=== PATIENT | male | born 1995 | race African-American/Black ===

== ENCOUNTER 2019-10-31 06:34 | Day surgery (SDC) | payer OTHER ==
[2019-10-30 16:00] VITALS: BMI 38.7
[~2019-10-31 06:34] MED LIST: BUPIVACAINE HCL/PF 0.5% (5 MG/ML) 30 ML VIAL IJ ONE
[2019-10-31] MEDS ORDERED: LIDOCAINE HCL/PF 2% SDV 5ML VIAL ONE (07:16)
[2019-10-31] MEDS ORDERED: DEXAMETHASONE SOD PHOSPHATE 4 MG/1 ML VIAL ONE (07:16)
[2019-10-31] MEDS ORDERED: PROPOFOL 20 ML ONE ×2 (07:16)
[2019-10-31] MEDS ORDERED: MIDAZOLAM HCL 2 MG/2 ML SINGLE DOSE VIAL ONE ×2 (07:17)
--- NOTE | 2019-10-31 08:18 | HP ---
History & Physical Update - History History: No Change - Physical Physical: No Change - Assessment Assessment: No Change - Plan Plan: No Change
--- NOTE | 2019-10-31 08:19 | OP ---
Operative Note - Note: Operative Date: 10/31/19 Pre-Operative Diagnosis: phimosis Operation: circumcision Findings: phimosis Post-Operative Diagnosis: Same as Pre-op Surgeon: Jorge Tuttle Anesthesiologist/HIDE SPLITTER: Dafne Ochoa Anesthesia: General, Local Specimens Removed: foreskin Estimated Blood Loss (mls): 0 Operative Report Dictated: Yes
[2019-10-31] MEDS ORDERED: oxyCODONE HCL 5 MG TABLET PO PRN ×2 (08:26)
[2019-10-31] MEDS ORDERED: ONDANSETRON 4 MG/2 ML VIAL IVPUSH PRN (08:26)
[2019-10-31] MEDS ORDERED: LACTATED RINGERS SOLUTION 1,000 ML IV SCH (08:30)
[2019-10-31] MEDS ORDERED: CLINDAMYCIN 600 MG PREMIX BAG IVPB ONE (10:15)
[2019-10-31] MEDS ORDERED: BUPIVACAINE HCL/PF 0.5% (5 MG/ML) 30 ML VIAL IJ ONE (10:17)
[2019-10-31] MEDS ORDERED: KETOROLAC TROMETHAMINE 30 MG/1 ML VIAL ONE (10:25)
[2019-10-31] MEDS ORDERED: ONDANSETRON 4 MG/2 ML VIAL ONE (10:25)
[2019-10-31] MEDS ORDERED: BACITRACIN 15 GM TUBE TOPICAL OINTMENT TP ONE (10:45)
[2019-10-31 12:00] VITALS: BP 125/60; PULSE 94
--- NOTE | 2019-10-31 14:20 | OP ---
DATE OF OPERATION: 10/31/2019 PREOPERATIVE DIAGNOSIS: Phimosis. POSTOPERATIVE DIAGNOSIS: Phimosis. PROCEDURE: Circumcision. SURGEON: Jorge Simpson MD BARN OPERATOR: None. ANESTHESIA: General via laryngeal mask. ANESTHESIOLOGIST: Dafne Ochoa MD SPECIMENS: Foreskin. CULTURES: None. DRAINS: None. ESTIMATED BLOOD LOSS: Negligible. COMPLICATIONS: None. DESCRIPTION OF PROCEDURE: Patient was brought into the operating room, placed on the operating table in supine position. After the administration of intravenous across, patient was left in the supine position, and the genitals were prepped and draped in the usual sterile manner. A dorsal slit was made at the 12 o'clock position, and the foreskin was retracted and the glans penis was prepped with Betadine again. A circumcoronal incision was outlined with the marking pen at the level of the groin with the in the anatomic position. Next, 10 mL of 0.5% Marcaine was injected circumferentially at the base of the penis as a penile block. Circumcoronal incision was now made with a scalpel, carried down to the underlying layer. The foreskin was retracted and subcoronal preputial mucosal tissue was incised circumferentially, leaving 0.5-cm cuff. Redundant foreskin was then excised, sent to pathology as specimen. Hemostasis was assured with electrocautery and one 2-0 Vicryl tie on the dorsal vein. Now the penile skin and the subcoronal preputial mucosa tissue was approximated using interrupted 4-0 chromic sutures circumferentially. Hemostasis was assured. The wound was sterilely dressed with Bacitracin, Xeroform gauze, 4 x 4, and Coban. He tolerated the procedure well, was transferred to the recovery room in stable condition. JORGE SIMPSON M.D. [id number]
[2019-10-31 15:50] VITALS: TEMP 98
--- NOTE | 2019-11-04 17:05 | PATH ---
Surgical Pathology Report Patient Name: VIRGIE ALEGRIA Med. Rec. #: [id number] /Age/Gender: 1995 (Age: 24) / M Account: [id number] Location: [facility] SUR[facility]ICAL Taken: 10/31/2019 Received: 10/31/2019 Reported: 11/04/2019 Physicians: Jorge Tuttle M.D. Specimen(s) Received FORESKIN Clinical History Phimosis Final Diagnosis FORESKIN, EXCISION: PORTION OF FORESKIN WITH MARKED CHRONIC, FOCAL ACUTE INFLAMMATION, PARAKERATOSIS, AND SYRINGOMA. Electronically Signed Mackenzie Cade M.D. Gross Description Received in formalin labeled "foreskin," is a 6.4 x 3.5 x 0.7 cm roy-brown, irregular portion of skin, consistent with foreskin. Reinsurance Analyst sections are submitted in one cassette. /11/03/2019 saudi/11/03/2019
== END 2019-10-31 13:15 | disposition home or self-care (01) ==
LOC: JASU-SURG 06:34
PROVIDERS: ATTEND Urology
PROC: 0VTTXZZ Resection of Prepuce, External Approach (ICD-10-PCS; principal; 2019-10-31 08:00)
DX: N47.1 Phimosis (principal); J45.909 Unspecified asthma, uncomplicated
CPT/HCPCS: 82962; 88304-TC; 94760